=== PATIENT | female | born 1990 | race Two or more races ===

== ENCOUNTER 2024-01-27 01:03 | Inpatient (IN) | payer OTHER, MEDICAID ==
[~2024-01-27] VITALS: Ht 167.6 cm; Wt 60.6 kg
[2024-01-27 01:31] VITALS: PULSE 87; RESP 22; O2SAT 100
[2024-01-27 01:51] LABS: Eosinophils # (auto) 0.1 10 ^3/uL (0-0.8); Eosinophils % (auto) 1.1 % (0.0-7.0); Hemoglobin 11.7 g/dL (12.2-16.2); Monocytes # (auto) 0.4 10 ^3/uL (0-1.3); Nucleated Red Blood Cells % 0.1 %
[2024-01-27 01:52] LABS: Basophils # (auto) 0 10 ^3/uL (0-0.2); Basophils % (auto) 0.5 % (0.0-2.0); Hematocrit 38.3 % (36.0-46.0); Lymphocytes # (auto) 2.2 10 ^3/uL (0.4-5.4); Lymphocytes % (auto) 27.3 % (10.0-50.0); Mean Corpuscular Hemoglobin 23.5 pg (28.0-32.0); Mean Corpuscular Hgb Conc. 30.6 g/dL (32.0-36.0); Mean Corpuscular Volume 76.8 fL (80.0-100.0); Monocytes % (auto) 5.5 % (0.0-12.0); Neutrophils # (auto) 5.3 10 ^3/uL (1.6-8.6); Neutrophils % (auto) 65.6 % (37.0-80.0); Red Blood Cells 4.99 10^6/uL (4.0-5.20)
[2024-01-27] MEDS: ONDANSETRON HCL 4 MG/2 ML VIAL IV ONE (01:57)
[2024-01-27] MEDS: MORPHINE SULFATE INJ 2 MG/ml SYRG IV ONE (01:59)
[2024-01-27] MEDS: LORazepam 2MG/ML-1ML VIAL IV ONE (02:02)
[2024-01-27 02:04] LABS: Alanine Aminotransferase 32 U/L (7-40); Albumin 4.1 g/dL (3.2-4.8); Alkaline Phosphatase 92 U/L (46-116); Anion Gap 10 (5-15); Aspartate Aminotransferase 44 U/L (13-40); Calcium 9.2 mg/dL (8.7-10.4); Carbon Dioxide 22 mmol/L (20-30); Chloride 105 mmol/L (98-107); Glucose 137 mg/dL (74-106); Sodium 137 mmol/L (136-145)
[2024-01-27 02:05] LABS: Bilirubin, Total 0.6 mg/dL (0.2-1.0); Total Protein 6.9 g/dL (5.7-8.2)
[2024-01-27 02:09] LABS: Red Cell Distribution Width 20.8 % (11.8-14.3)
[2024-01-27 02:10] LABS: Blood Urea Nitrogen < 5 mg/dL (9-23)
[2024-01-27] MEDS: SODIUM CHLORIDE 0.9% 1,000 ML IV ONE (02:40)
[2024-01-27] MEDS: ETOMIDATE (2MG/ML) 20ML VIAL IV ONE ×2 (03:01→03:28)
[2024-01-27] MEDS ORDERED: ACETAMINOPHEN 325 MG TAB PO PRN (03:30)
[2024-01-27] MEDS ORDERED: ONDANSETRON HCL 4 MG/2 ML VIAL IV PRN (03:30)
[2024-01-27] MEDS ORDERED: MORPHINE SULFATE INJ 2 MG/ml SYRG IV PRN (03:30)
[2024-01-27] MEDS ORDERED: NITROGLYCERIN 0.4 MG SL TAB SL PRN (03:30)
[2024-01-27] MEDS ORDERED: DOCUSATE SOD 100 MG CAP PO PRN (03:30)
[2024-01-27] MEDS: SODIUM CHLORIDE 0.9% 1,000 ML IV SCH (03:31)
[2024-01-27] MEDS ORDERED: LORazepam 2MG/ML-1ML VIAL IV PRN (03:45)
[2024-01-27 05:21] LABS: Basophils # (auto) 0 10 ^3/uL (0-0.2); Basophils % (auto) 0.1 % (0.0-2.0); Eosinophils # (auto) 0 10 ^3/uL (0-0.8); Hematocrit 35.5 % (36.0-46.0); Hemoglobin 11.2 g/dL (12.2-16.2); Lymphocytes # (auto) 0.5 10 ^3/uL (0.4-5.4); Mean Corpuscular Hemoglobin 23.9 pg (28.0-32.0); Mean Corpuscular Hgb Conc. 31.5 g/dL (32.0-36.0); Neutrophils # (auto) 11.5 10 ^3/uL (1.6-8.6)
[2024-01-27 05:24] LABS: Lymphocytes % (auto) 4.2 % (10.0-50.0); Mean Corpuscular Volume 75.6 fL (80.0-100.0); Monocytes # (auto) 0.4 10 ^3/uL (0-1.3); Monocytes % (auto) 3.3 % (0.0-12.0); Neutrophils % (auto) 92.4 % (37.0-80.0); Red Blood Cells 4.69 10^6/uL (4.0-5.20); Red Cell Distribution Width 19.8 % (11.8-14.3); White Blood Cell 12.4 10^3/uL (4.4-10.8)
[2024-01-27 05:38] LABS: Alanine Aminotransferase 27 U/L (7-40); Albumin 4.1 g/dL (3.2-4.8); Alkaline Phosphatase 89 U/L (46-116); Anion Gap 9 (5-15); Aspartate Aminotransferase 38 U/L (13-40); Calcium 8.7 mg/dL (8.5-10.1); Carbon Dioxide 24 mmol/L (20-30); Chloride 107 mmol/L (98-107); Glucose 94 mg/dL (74-106); Potassium 3.2 mmol/L (3.5-5.1); Sodium 140 mmol/L (136-145)
[2024-01-27 05:39] LABS: Bilirubin, Total 0.8 mg/dL (0.2-1.0); Total Protein 6.3 g/dL (5.7-8.2)
[2024-01-27 05:42] LABS: BUN/Creatinine Ratio 8.3 (10.0-20.0); Blood Urea Nitrogen < 5 mg/dL (9-23)
[2024-01-27 07:20] VITALS: PULSE 87; RESP 19; O2SAT 97
[2024-01-27 07:41] LABS: Urine Bacteria FEW /hpf (None Seen); Urine Blood 3+ /uL (Negative); Urine Clarity CLOUDY (Clear); Urine Color Colorless (Yellow); Urine Mucus FEW (None Seen); Urine Protein, UAD TRACE (Negative); Urine Specific Gravity 1.014 (1.001-1.035); Urine Urobilinogen Normal (Negative); Urine WBC 13 /hpf (0 - 5); Urine pH 7.5 (5.0-8.0)
[2024-01-27 07:51] LABS: Amphetamine Screen, Urine Neg (NEGATIVE); Barbiturate Scree,Urine Neg (NEGATIVE); Benzodiazephine Screen, Urine Neg (NEGATIVE); Cannabinoid Screen, Urine Neg (NEGATIVE); Cocaine Screen, Urine Neg (NEGATIVE); Opiate Scree,Urine Neg (NEGATIVE); Phencyclidine Screen, Urine Neg (NEGATIVE)
[2024-01-27] MEDS: HYDROcodone-ACET 5/325MG TAB PO PRN (08:33)
[2024-01-27 22:56] VITALS: BP 139/94; PULSE 67; PULSE 89; RESP 17; RESP 18; TEMP 98.6; O2SAT 98
[2024-01-28] VITALS (9 sets, daily range): BP systolic 134–147; BP diastolic 94–111; PULSE 75–106; RESP 17–20; TEMP 97.7–98.6; O2SAT 94–99
[2024-01-28 05:19] LABS: Basophils # (auto) 0 10 ^3/uL (0-0.2); Mean Corpuscular Volume 75.6 fL (80.0-100.0); Monocytes # (auto) 0.4 10 ^3/uL (0-1.3); Neutrophils # (auto) 5.7 10 ^3/uL (1.6-8.6)
[2024-01-28 05:20] LABS: Basophils % (auto) 0.2 % (0.0-2.0); Eosinophils # (auto) 0.1 10 ^3/uL (0-0.8); Eosinophils % (auto) 1.8 % (0.0-7.0); Hematocrit 37.1 % (36.0-46.0); Hemoglobin 11.7 g/dL (12.2-16.2); Lymphocytes # (auto) 1.9 10 ^3/uL (0.4-5.4); Lymphocytes % (auto) 23.2 % (10.0-50.0); Mean Corpuscular Hemoglobin 23.7 pg (28.0-32.0); Mean Corpuscular Hgb Conc. 31.4 g/dL (32.0-36.0); Monocytes % (auto) 4.9 % (0.0-12.0); Neutrophils % (auto) 69.9 % (37.0-80.0); Red Blood Cells 4.91 10^6/uL (4.0-5.20); White Blood Cell 8.2 10^3/uL (4.4-10.8)
[2024-01-28 05:30] LABS: Red Cell Distribution Width 20.8 % (11.8-14.3)
[2024-01-28 05:36] LABS: Alanine Aminotransferase 18 U/L (7-40); Alkaline Phosphatase 80 U/L (46-116); Anion Gap 7 (5-15); Aspartate Aminotransferase 22 U/L (13-40); Calcium 8.9 mg/dL (8.7-10.4); Carbon Dioxide 26 mmol/L (20-30); Chloride 105 mmol/L (98-107); Glucose 95 mg/dL (74-106); Potassium 3.2 mmol/L (3.5-5.1); Sodium 138 mmol/L (136-145)
[2024-01-28 05:37] LABS: Bilirubin, Total 0.8 mg/dL (0.2-1.0); Total Protein 6.6 g/dL (5.7-8.2)
[2024-01-28 05:50] LABS: BUN/Creatinine Ratio 8.6 (10.0-20.0); Blood Urea Nitrogen < 5 mg/dL (9-23)
[2024-01-28] MEDS ORDERED: LORazepam 2MG/ML-1ML VIAL IV PRN (22:30)
[2024-01-28] MEDS ORDERED: hydrALAZINE HCL 20 MG/ML VL IV ONE (22:45)
[2024-01-29 01:00] VITALS: BP 133/82; PULSE 73; RESP 18; TEMP 97.9; O2SAT 96
[2024-01-29 05:00] VITALS: BP 142/110; PULSE 94; RESP 20; TEMP 98.5; O2SAT 98
[2024-01-29 06:19] LABS: Basophils # (auto) 0 10 ^3/uL (0-0.2); Eosinophils # (auto) 0.2 10 ^3/uL (0-0.8); Lymphocytes # (auto) 1.3 10 ^3/uL (0.4-5.4); Monocytes # (auto) 0.4 10 ^3/uL (0-1.3); Neutrophils # (auto) 4.4 10 ^3/uL (1.6-8.6); White Blood Cell 6.4 10^3/uL (4.4-10.8)
[2024-01-29 06:22] LABS: Basophils % (auto) 0.4 % (0.0-2.0); Eosinophils % (auto) 2.6 % (0.0-7.0); Hematocrit 36.1 % (36.0-46.0); Hemoglobin 11.3 g/dL (12.2-16.2); Lymphocytes % (auto) 20.9 % (10.0-50.0); Mean Corpuscular Hemoglobin 24.3 pg (28.0-32.0); Mean Corpuscular Hgb Conc. 31.4 g/dL (32.0-36.0); Mean Corpuscular Volume 77.3 fL (80.0-100.0); Monocytes % (auto) 6.6 % (0.0-12.0); Neutrophils % (auto) 69.5 % (37.0-80.0); Nucleated Red Blood Cells % 0.1 %; Red Blood Cells 4.67 10^6/uL (4.0-5.20)
[2024-01-29 06:30] LABS: Anion Gap 4 (5-15); Calcium 8.7 mg/dL (8.5-10.1); Carbon Dioxide 29 mmol/L (20-30); Chloride 106 mmol/L (98-107); Potassium 3.3 mmol/L (3.5-5.1); Sodium 139 mmol/L (136-145)
[2024-01-29 06:36] LABS: Glucose 99 mg/dL (74-106)
[2024-01-29 06:40] LABS: Red Cell Distribution Width 20.7 % (11.8-14.3)
[2024-01-29 06:44] LABS: BUN/Creatinine Ratio 8.9 (10.0-20.0); Blood Urea Nitrogen < 5 mg/dL (9-23)
[2024-01-29 08:00] VITALS: PULSE 71; RESP 19
[2024-01-29 09:00] VITALS: BP 128/90; PULSE 90; RESP 17; TEMP 98; O2SAT 98
[2024-01-29] MEDS ORDERED: HYDR-4902 PO (09:41)
[2024-01-29] MEDS: POTASSIUM CHL 10 Meq TABLET PO ONE (11:55)
[2024-01-29] MEDS: POTASSIUM CHL 20 Meq TABLET PO ONE (11:55)
[2024-01-29 12:06] VITALS: BP 126/89; PULSE 90; RESP 18; TEMP 36.7; O2SAT 98
[2024-01-29 13:00] VITALS: BP 147/96; PULSE 95; RESP 20; TEMP 98.2; O2SAT 99
== END 2024-01-29 15:30 | disposition home or self-care (01) | DRG 563 ==
LOC: ER 01:03 → EDBD 01:03 → TELE 03:25 → ER 03:25 → TELE-WESTW 22:52
PROVIDERS: ADMIT Nurse Practitioner Family; ATTEND Internal Medicine Pulmonary Disease
DX: S43.004A Unspecified dislocation of right shoulder joint, initial encounter (principal); F10.239 Alcohol dependence with withdrawal, unspecified; G40.909 Epilepsy, unspecified, not intractable, without status epilepticus; R73.9 Hyperglycemia, unspecified; F17.200 Nicotine dependence, unspecified, uncomplicated; F41.9 Anxiety disorder, unspecified; W06.XXXA Fall from bed, initial encounter; I10 Essential (primary) hypertension; Z79.899 Other long term (current) drug therapy; Z56.0 Unemployment, unspecified; Z81.8 Family history of other mental and behavioral disorders; Z82.49 Family history of ischemic heart disease and other diseases of the circulatory system; Z83.3 Family history of diabetes mellitus; Z91.128 Patient's intentional underdosing of medication regimen for other reason; Y93.89 Activity, other specified; Y92.89 Other specified places as the place of occurrence of the external cause; Y99.8 Other external cause status; F53.0 Postpartum depression
CPT/HCPCS: 36415; 70450; 70551; 71045; 73020; 73030; 80048; 80053; 80307; 80320; 81001; 85025; 96361; 96374; 96375; G0378; J2405

== ENCOUNTER 2024-10-25 01:13 | Emergency (ER) | payer OTHER, MEDICAID ==
[~2024-10-25] VITALS: Ht 167.6 cm; Wt 70.3 kg
[~2024-10-25 01:13] MED LIST: HYDR-4902 PO
[2024-10-25] MEDS: LORazepam 2MG/ML-1ML VIAL IV ONE (01:45)
--- NOTE | 2024-10-25 01:45 | ED.PDOC ---
HPI (NEURO) HPI Comments 34 year old female brought in by EMS presents to the ED with a chief complaint of seizure onset today. Per EMS, patient was drinking ETOH when she experienced a single seizure episode. Patient states she had a similar episode 1 year ago, after drinking ETOH as well. Patient denies any chest pain, shortness of breath, dizziness, headache, nausea, vomiting, diarrhea. No other symptoms or modifying factors present at this time. 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 Hx Family History Family History: Unknown Social History Smoker: Non-Smoker Alcohol: Heavy Drugs: Denies Drug Use Lives In: Home Constitutional: denies: chills, diaphoresis, fatigue, fever, malaise, sweats, weakness, others EENTM: denies: blurred vision, double vision, ear bleeding, ear discharge, ear drainage, ear pain, ear ringing, eye pain, eye redness, hearing loss, mouth pain, mouth swelling, nasal discharge, nose bleeding, nose congestion, nose pain, photophobia, tearing, throat pain, throat swelling, voice changes, others Respiratory: denies: cough, hemoptysis, orthopnea, SOB at rest, shortness of breath, SOB with excertion, stridor, wheezing, others Cardiovascular: denies: chest pain, dizzy spells, diaphoresis, Dyspnea on exertion, edema, irregular heart beat, left arm pain, lightheadedness, palpitations, PND, syncope, others Gastrointestinal: denies: abdomen distended, abdominal pain, blood streaked bowels, constipated, diarrhea, dysphagia, difficulty swallowing, hematemesis, melena, nausea, poor appetite, poor fluid intake, rectal bleeding, rectal pain, vomiting, others Genitourinary: denies: abnormal vagina bleeding, burning, dyspareunia, dysuria, flank pain, frequency, hematuria, incontinence, pain, , vagina discharge, urgency, others Neurological: reports: seizure; denies: dizziness, fainting, headache, left sided numbness, left sided weakness, numbness, paresthesia, pre-existing deficit, right sided numbness, right sided weakness, speech problems, tingling, tremors, weakness, others Musculoskeletal: denies: back pain, gout, joint pain, joint swelling, muscle pain, muscle stiffness, neck pain, others Integumetry: denies: bruises, change in color, change in hair/nails, dryness, laceration, lesions, lumps, rash, wounds, others Allergic/Immunocompromised: denies: Difficulty Healing, Frequent Infections, Hives, Itching, others Hematologic/Lymphatic: denies: anemia, blood clots, easy bleeding, easy bruising, swollen glands, others Endocrine: denies: excessive hunger, excessive sweating, excessive thirst, excessive urination, flushing, intolerance to cold, intolerance to heat, unexplained weight gain, unexplained weight loss, others Psychiatric: denies: anxiety, bipolar disorder, depression, hopeless, panic disorder, schizophrenia, sleepless, suicidal, others All Other Systems: Reviewed and Negative Physical Exam General Appearance: Mild Distress, Normal HEENT: Normal ENT Inspection, Pharynx Normal, TMs Normal Neck: Full Range of Motion, Non-Tender, Normal, Normal Inspection Respiratory: Chest Non-Tender, Lungs Clear, No Accessory Muscle Use, No Respiratory Distress, Normal Breath Sounds Cardiovascular: No Edema, No JVD, No Murmur, No Gallop, Normal Peripheral Pulses, Regular Rate/Rhythm Breast Exam: Deferred Gastrointestinal: No Organomegaly, Non Tender, No Pulsatile Mass, Normal Bowel Sounds, Soft Genitalia: Deferred Pelvic: Deferred Rectal: Deferred Extremities: No calf tenderness, Normal capillary refill, Normal inspection, Normal range of motion, Non-tender, No pedal edema Musculoskeletal : Apperance: Normal Neurologic: Alert, 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 Was a procedure done?: No Differential Diagnosis (SZ) Seizure: Psychogenic Seizure, Alcohol Withdrawl, Hyponatremia, Syncope, Epilepsy-Break Through, Epilepsy-Status, Other CVA: Electrolyte Imbalance X-Ray, Labs, Meds, VS Vital Signs Date Time Temp Pulse Resp B/P (MAP) Pulse Ox O2 Delivery O2 Flow Rate FiO2 10/25/24 04:05 99.3 120 25 147/87 (107) 100 99.3 10/25/24 01:32 100.3 114 20 121/87 (98) 98 Lab Test 10/25/24 02:30 10/25/24 01:56 Range/Units White Blood Count 8.5 4.4-10.8 10^3/uL Red Blood Count 4.66 4.0-5.20 10^6/uL Hemoglobin 13.9 12.2-16.2 g/dL Hematocrit 42.6 36.0-46.0 % Mean Corpuscular Volume 91.5 80.0-100.0 fL Mean Corpuscular Hemoglobin 29.9 28.0-32.0 pg Mean Corpuscular Hemoglobin Concent 32.7 32.0-36.0 g/dL Red Cell Distribution Width 17.5 H 11.8-14.3 % Platelet Count 100 L 140-450 10^3/uL Mean Platelet Volume 8.9 6.9-10.8 fL Neutrophils (%) (Auto) 91.8 H 37.0-80.0 % Lymphocytes (%) (Auto) 4.4 L 10.0-50.0 % Monocytes (%) (Auto) 3.1 0.0-12.0 % Eosinophils (%) (Auto) 0.4 0.0-7.0 % Basophils (%) (Auto) 0.3 0.0-2.0 % Neutrophils # (Auto) 7.8 1.6-8.6 10 ^3/uL Lymphocytes # (Auto) 0.4 0.4-5.4 10 ^3/uL Monocytes # (Auto) 0.3 0-1.3 10 ^3/uL Eosinophils # (Auto) 0 0-0.8 10 ^3/uL Basophils # (Auto) 0 0-0.2 10 ^3/uL Nucleated Red Blood Cells 0.1 % Platelet Estimate Decrea Large Platelets Few Sodium Level 136 136-145 mmol/L Potassium Level 3.8 3.5-5.1 mmol/L Chloride Level 102 98-107 mmol/L Carbon Dioxide Level 24 20-31 mmol/L Anion Gap 10 5-15 Blood Urea Nitrogen < 5 L 9-23 mg/dL Creatinine 0.81 0.550-1.02 mg/dL Glomerular Filtration Rate Calc 97 >90 mL/min BUN/Creatinine Ratio 6.2 L 10.0-20.0 Serum Glucose 122 H 74-106 mg/dL Calcium Level 9.2 8.7-10.4 mg/dL Magnesium Level 1.5 L 1.6-2.6 mg/dL Total Bilirubin 1.0 0.2-1.0 mg/dL Aspartate Amino Transferase (AST) 41 H 13-40 U/L Alanine Aminotransferase (ALT) 15 7-40 U/L Alkaline Phosphatase 88 46-116 U/L Total Protein 7.1 5.7-8.2 g/dL Albumin 4.3 3.2-4.8 g/dL Plasma/Serum Blood Alcohol 3.2 <10 mg/dL Current Medications Medications (Trade) Dose Ordered Sig/Caleb Route Start Time Stop Time Status Last Admin Lorazepam (Ativan Inj) 2 mg ONCE ONCE IV 10/25/24 01:45 10/25/24 01:46 DC 10/25/24 01:45 Sodium Chloride 500 ml @ 500 mls/hr Q1H ONCE IVB 10/25/24 01:45 10/25/24 02:44 DC 10/25/24 04:08 Time of 1ST Reevaluation: 02:08 Reevaluation 1ST: Unchanged Time of 2ND Reevaluation: 04:57 Reevaluation 2ND: Improved Patient Education/Counseling: Diagnosis, Treatment, Prognosis Family Education/Counseling: No Family Present Additional Information I reviewed the following notes from patient's past medical encounters: The following tests were ordered, and results were reviewed by me: CBC, CMP, MAGNESIUM, BLOOD ALCOHOL Additional Information was gathered from interviewing the following independent historians: EMS I discussed treatment and results with medical personnel and: patient Departure 1 Departure Time of Disposition: 04:58 Impression: Primary Impression: Seizure Additional Impression: Alcohol withdrawal seizure Disposition: 01 HOME / SELF CARE / HOMELESS Condition: Stable e-Prescriptions Magnesium Oxide (MAGNESIUM OXIDE) 400 Mg Tab 1 TAB PO BID for 30 Days, #60 TAB 5 Refills Prov: CHLOE FRY MD 10/25/24 Multiple Vitamin (Multivitamins) Tab 1 TAB PO DAILY for 90 Days, #90 TAB 3 Refills Prov: CHLOE FRY MD 10/25/24 Chlordiazepoxide Hcl (Librium) 25 Mg Cp 25 MG GT Q4HP PRN for 10 Days, #40 CAP Prov: CHLOE FRY MD 10/25/24 Discharged With: Self Critical Care Note Critical Care Time?: No Stability Stability form required: No I personally scribed for CHLOE FRY MD ([email or web address]) on 10/25/24 at 01:45. Electronically submitted by Rebeca Stone ([email or web address]). I personally scribed for CHLOE FRY MD ([email or web address]) on 10/25/24 at 01:46. Electronically submitted by Rebeca Stone ([email or web address]). CHLOE FRY MD Oct 25, 2024 01:45
[2024-10-25 02:23] LABS: Alanine Aminotransferase 15 U/L (7-40); Albumin 4.3 g/dL (3.2-4.8); Alkaline Phosphatase 88 U/L (46-116); Anion Gap 10 (5-15); Blood Alcohol 3.2 mg/dL (<10); Calcium 9.2 mg/dL (8.7-10.4); Carbon Dioxide 24 mmol/L (20-31); Chloride 102 mmol/L (98-107); Potassium 3.8 mmol/L (3.5-5.1); Sodium 136 mmol/L (136-145); Total Protein 7.1 g/dL (5.7-8.2)
[2024-10-25 02:38] LABS: Aspartate Aminotransferase 41 U/L (13-40); BUN/Creatinine Ratio 6.2 (10.0-20.0); Blood Urea Nitrogen < 5 mg/dL (9-23); Glucose 122 mg/dL (74-106); Magnesium 1.5 mg/dL (1.6-2.6)
[2024-10-25 02:41] LABS: Basophils # (auto) 0 10 ^3/uL (0-0.2); Basophils % (auto) 0.3 % (0.0-2.0); Eosinophils # (auto) 0 10 ^3/uL (0-0.8); Eosinophils % (auto) 0.4 % (0.0-7.0); Hematocrit 42.6 % (36.0-46.0); Hemoglobin 13.9 g/dL (12.2-16.2); Lymphocytes # (auto) 0.4 10 ^3/uL (0.4-5.4); Lymphocytes % (auto) 4.4 % (10.0-50.0); Mean Corpuscular Hemoglobin 29.9 pg (28.0-32.0); Mean Corpuscular Hgb Conc. 32.7 g/dL (32.0-36.0); Mean Corpuscular Volume 91.5 fL (80.0-100.0); Monocytes # (auto) 0.3 10 ^3/uL (0-1.3); Monocytes % (auto) 3.1 % (0.0-12.0); Neutrophils # (auto) 7.8 10 ^3/uL (1.6-8.6); Neutrophils % (auto) 91.8 % (37.0-80.0); Nucleated Red Blood Cells % 0.1 %; Platelet Count (auto) 100 10^3/uL (140-450); Red Blood Cells 4.66 10^6/uL (4.0-5.20); Red Cell Distribution Width 17.5 % (11.8-14.3); White Blood Cell 8.5 10^3/uL (4.4-10.8)
[2024-10-25] MEDS: MAGNESIUM SULFATE 1GM/100ML 100 ML IV SCH (02:45)
[2024-10-25 02:53] LABS: Large Platelets FEW; Platelet Estimate Decrea
[2024-10-25] MEDS ORDERED: MAGN400T40 PO (02:56)
[2024-10-25] MEDS ORDERED: MULT-1018 PO (02:56)
[2024-10-25] MEDS ORDERED: CHL25C GT (02:56)
[2024-10-25] MEDS: SODIUM CHLORIDE 0.9% 500 ML IVB ONE (04:08)
[2024-10-25 06:01] VITALS: BP 130/89; TEMP 100.9
[2024-10-25 06:34] VITALS: PULSE 124; RESP 12; O2SAT 99
== END 2024-10-25 06:36 | disposition home or self-care (01) ==
LOC: EDBD 01:13 → ER 01:13
DX: G40.909 Epilepsy, unspecified, not intractable, without status epilepticus (principal); F10.939 Alcohol use, unspecified with withdrawal, unspecified; I10 Essential (primary) hypertension
CPT/HCPCS: 36415; 80053; 80320; 83735; 85025; 96361; 96374; 99283; J2060; J7040

== ENCOUNTER 2024-12-23 11:42 | Emergency (ER) | payer OTHER, MEDICAID ==
[~2024-12-23] VITALS: Ht 170.2 cm; Wt 61.0 kg
[~2024-12-23 11:42] MED LIST changes: +CHL25C GT; +MAGN400T40 PO; +MULT-1018 PO
[2024-12-23] MEDS: MORPHINE SULFATE 4 MG/ML SYR/VIAL IV ONE (11:45)
--- NOTE | 2024-12-23 11:52 | ED.PDOC ---
History of Present Illness HPI Comments 34-year-old female who comes in with chief complaint of tonic-clonic seizure lasting approximately 2 minutes. The patient was admits to alcohol use yesterday and then today had a seizure lasting approximately 2 minutes. There was no head trauma but the patient landed on her right shoulder. She states that she has had a dislocation in the past and states that the pain is an 8/10. There seems to be some obvious deformity. She states that her last seizure was last year after drinking alcohol as well. Chief Complaint: Seizure Time Seen by MD: 11:45 Reviewed Notes: Nurses Notes, Sub Master Notes, Medications, Allergies (NKDA ) Allergies: Coded Allergies: NO KNOWN ALLERGIES (Unverified , 01/27/24) Home Meds Active Scripts Magnesium Oxide (MAGNESIUM OXIDE) 400 Mg Tab, 1 TAB PO BID for 30 Days, #60 TAB 5 Refills Prov:CHLOE FRY MD 10/25/24 Multiple Vitamin (Multivitamins) Tab, 1 TAB PO DAILY for 90 Days, #90 TAB 3 Refills Prov:CHLOE FRY MD 10/25/24 Chlordiazepoxide Hcl (Librium) 25 Mg Cp, 25 MG GT Q4HP PRN for 10 Days, #40 CAP Prov:CHLOE FRY MD 10/25/24 Hydrocodone-Acetaminophen (Hydrocodone Bitartrate/AC 5-325 mg) 1 Tab Tab, 1 TAB PO Q6HPRN PRN for 5 Days, #20 TAB Prov:DARRON MONGE MD 01/29/24 Information Source: Patient, Emergency Med Personnel Mode of Arrival: EMS Severity: Moderate Timing: Minutes Duration: Intermittent 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, 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 Location: Right shoulder pain and possible deformity Past Medical History PAST MEDICAL HISTORY: Depression, Seizures Surgical History: Denies all surgeries DESK MONITOR History: Denies all DESK MONITOR Hx Family History Family History: Unknown Social History Smoker: Non-Smoker Alcohol: Heavy Drugs: Denies Drug Use Lives In: Home Constitutional: denies: chills, diaphoresis, fatigue, fever, malaise, sweats, weakness, others EENTM: denies: blurred vision, double vision, ear bleeding, ear discharge, ear drainage, ear pain, ear ringing, eye pain, eye redness, hearing loss, mouth pain, mouth swelling, nasal discharge, nose bleeding, nose congestion, nose pain, photophobia, tearing, throat pain, throat swelling, voice changes, others Respiratory: denies: cough, hemoptysis, orthopnea, SOB at rest, shortness of breath, SOB with excertion, stridor, wheezing, others Cardiovascular: denies: chest pain, dizzy spells, diaphoresis, Dyspnea on exertion, edema, irregular heart beat, left arm pain, lightheadedness, palpitations, PND, syncope, others Gastrointestinal: denies: abdomen distended, abdominal pain, blood streaked bowels, constipated, diarrhea, dysphagia, difficulty swallowing, hematemesis, melena, nausea, poor appetite, poor fluid intake, rectal bleeding, rectal pain, vomiting, others Genitourinary: denies: abnormal vagina bleeding, burning, dyspareunia, dysuria, flank pain, frequency, hematuria, incontinence, pain, , vagina discharge, urgency, others Neurological: reports: seizure; denies: dizziness, fainting, headache, left sided numbness, left sided weakness, numbness, paresthesia, pre-existing deficit, right sided numbness, right sided weakness, speech problems, tingling, tremors, weakness, others Musculoskeletal: reports: others (Right shoulder pain); denies: back pain, gout, joint pain, joint swelling, muscle pain, muscle stiffness, neck pain Integumetry: denies: bruises, change in color, change in hair/nails, dryness, laceration, lesions, lumps, rash, wounds, others Allergic/Immunocompromised: denies: Difficulty Healing, Frequent Infections, Hives, Itching, others Hematologic/Lymphatic: denies: anemia, blood clots, easy bleeding, easy bruising, swollen glands, others Endocrine: denies: excessive hunger, excessive sweating, excessive thirst, excessive urination, flushing, intolerance to cold, intolerance to heat, unexplained weight gain, unexplained weight loss, others Psychiatric: denies: anxiety, bipolar disorder, depression, hopeless, panic disorder, schizophrenia, sleepless, suicidal, others Physical Exam General Appearance: Moderate Distress HEENT: Normal ENT Inspection, Pharynx Normal, TMs Normal Neck: Full Range of Motion, Non-Tender, Normal, Normal Inspection Respiratory: Chest Non-Tender, Lungs Clear, No Accessory Muscle Use, No Respiratory Distress, Normal Breath Sounds Cardiovascular: No Edema, No JVD, No Murmur, No Gallop, Normal Peripheral Pulses, Regular Rate/Rhythm Breast Exam: Deferred Gastrointestinal: No Organomegaly, Non Tender, No Pulsatile Mass, Normal Bowel Sounds, Soft Genitalia: Deferred Pelvic: Deferred Rectal: Deferred Extremities: No calf tenderness, Normal capillary refill, No pedal edema, Other (Right shoulder pain and deformity) Musculoskeletal : Apperance: Normal 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 Was a procedure done?: Yes Sedation Sedation?: Yes Informed consent obtained: Yes Sedation start time: 12:38 Sedation end time: 12:55 Sedation total time: 17 minutes Reduction Indication: Dislocation (Right shoulder dislocation) Sedation: Consents obtained, Sedation as ordered Intra-articular anesthetic maral: No Post-reduction x-ray show: Reduction, Good Alignment Informed consent obtained: Yes Risks/benefits/alt described: Yes Differential Dx Considerations may include: Fracture, dislocation, contusion X-Ray, Labs, Meds, VS Vital Signs Date Time Temp Pulse Resp B/P (MAP) Pulse Ox O2 Delivery O2 Flow Rate FiO2 12/23/24 12:38 102 43 100 3.0 32 115 24 99 108 98 12/23/24 11:46 98.3 125 18 113/79 (90) 100 Lab Test 12/23/24 12:14 Range/Units White Blood Count 7.6 4.4-10.8 10^3/uL Red Blood Count 5.12 4.0-5.20 10^6/uL Hemoglobin 15.6 12.2-16.2 g/dL Hematocrit 47.8 H 36.0-46.0 % Mean Corpuscular Volume 93.4 80.0-100.0 fL Mean Corpuscular Hemoglobin 30.5 28.0-32.0 pg Mean Corpuscular Hemoglobin Concent 32.7 32.0-36.0 g/dL Red Cell Distribution Width 17.1 H 11.8-14.3 % Platelet Count 147 140-450 10^3/uL Mean Platelet Volume 9.0 6.9-10.8 fL Neutrophils (%) (Auto) 84.8 H 37.0-80.0 % Lymphocytes (%) (Auto) 11.4 10.0-50.0 % Monocytes (%) (Auto) 2.9 0.0-12.0 % Eosinophils (%) (Auto) 0.4 0.0-7.0 % Basophils (%) (Auto) 0.5 0.0-2.0 % Neutrophils # (Auto) 6.4 1.6-8.6 10 ^3/uL Lymphocytes # (Auto) 0.9 0.4-5.4 10 ^3/uL Monocytes # (Auto) 0.2 0-1.3 10 ^3/uL Eosinophils # (Auto) 0 0-0.8 10 ^3/uL Basophils # (Auto) 0 0-0.2 10 ^3/uL Nucleated Red Blood Cells 0.1 % Sodium Level 139 136-145 mmol/L Potassium Level 3.4 L 3.5-5.1 mmol/L Chloride Level 105 98-107 mmol/L Carbon Dioxide Level 18 L 20-31 mmol/L Anion Gap 16 H 5-15 Blood Urea Nitrogen < 5 L 9-23 mg/dL Creatinine 0.79 0.550-1.02 mg/dL Glomerular Filtration Rate Calc 100 >90 mL/min BUN/Creatinine Ratio 6.3 L 10.0-20.0 Serum Glucose 117 H 74-106 mg/dL Calcium Level 9.5 8.7-10.4 mg/dL Plasma/Serum Blood Alcohol < 3.0 <10 mg/dL Current Medications Medications (Trade) Dose Ordered Sig/Caleb Route Start Time Stop Time Status Last Admin Ondansetron HCl (Zofran) 4 mg ONCE ONCE IV 12/23/24 11:45 12/23/24 11:48 DC 12/23/24 12:34 Etomidate 20 mg ONCE ONCE IV 12/23/24 12:45 12/23/24 12:46 DC 12/23/24 12:44 IV Hep-Lock is being established in the patient was given morphine 4 mg IV push for pain The patient was given Zofran 4 mg IV for nausea The patient tolerated the procedure well. Sedation was given etomidate 20 mg IV push for the procedure The CBC and chemistry panel are within normal limits At this time, the patient is discharged The patient was in a shoulder immobilizer. The patient tolerated the procedure and the patient was to abstain from alcohol use. Images Reviewed?: Images reviewed and evaluated by me Time of 1ST Reevaluation: 11:56 Reevaluation 1ST: Unchanged Patient Education/Counseling: Diagnosis, Treatment, Prognosis, Need For Follow Up Family Education/Counseling: No Family Present Departure 1 Departure Time of Disposition: 14:19 Impression: Primary Impression: Dislocation of right shoulder joint Qualified Codes: S43.004A - Unspecified dislocation of right shoulder joint, initial encounter Additional Impression: Seizure disorder Disposition: 01 HOME / SELF CARE / HOMELESS Condition: Fair Discharged With: Self Critical Care Note Critical Care Time?: No Stability Stability form required: No Heart Score Heart Score: Heart Score Response (Comments) Value History N/A 0 EKG N/A 0 Age N/A 0 Risk Factors N/A 0 Troponin N/A 0 Total 0 GEOVANY BEE MD Dec 23, 2024 11:51
[2024-12-23 12:31] VITALS: TEMP 98
[2024-12-23 12:32] LABS: Basophils # (auto) 0 10 ^3/uL (0-0.2); Basophils % (auto) 0.5 % (0.0-2.0); Eosinophils # (auto) 0 10 ^3/uL (0-0.8); Eosinophils % (auto) 0.4 % (0.0-7.0); Hematocrit 47.8 % (36.0-46.0); Hemoglobin 15.6 g/dL (12.2-16.2); Lymphocytes # (auto) 0.9 10 ^3/uL (0.4-5.4); Lymphocytes % (auto) 11.4 % (10.0-50.0); Mean Corpuscular Hemoglobin 30.5 pg (28.0-32.0); Mean Corpuscular Hgb Conc. 32.7 g/dL (32.0-36.0); Mean Corpuscular Volume 93.4 fL (80.0-100.0); Monocytes # (auto) 0.2 10 ^3/uL (0-1.3); Monocytes % (auto) 2.9 % (0.0-12.0); Neutrophils # (auto) 6.4 10 ^3/uL (1.6-8.6); Neutrophils % (auto) 84.8 % (37.0-80.0); Nucleated Red Blood Cells % 0.1 %; Platelet Count (auto) 147 10^3/uL (140-450); Red Blood Cells 5.12 10^6/uL (4.0-5.20); Red Cell Distribution Width 17.1 % (11.8-14.3); White Blood Cell 7.6 10^3/uL (4.4-10.8)
[2024-12-23] MEDS: ONDANSETRON HCL 4 MG/2 ML VIAL IV ONE (12:34)
[2024-12-23 12:35] VITALS: PULSE 107; RESP 30; O2SAT 99
[2024-12-23 12:43] LABS: Anion Gap 16 (5-15); Chloride 105 mmol/L (98-107); Sodium 139 mmol/L (136-145)
[2024-12-23 12:44] LABS: Calcium 9.5 mg/dL (8.7-10.4)
[2024-12-23] MEDS: ETOMIDATE (2MG/ML) 20ML VIAL IV ONE (12:44)
--- NOTE | 2024-12-23 12:46 | DVH ---
EXAM: XY R SHOULDER 2+ VIEW XRAY CLINICAL INDICATION: trauma TECHNIQUE: XY R SHOULDER 2+ VIEW XRAY Comparison: XY R SHOULDER 1V XRAY on DOS: 01/27/24, XY R SHOULDER 2+ VIEW XRAY on DOS: 01/27/24 FINDINGS/IMPRESSION: There is anterior-inferior dislocation of the humeral head with respect to the glenoid fossa. Possibl e Hill-Sachs defect noted involving the posterolateral humeral head.
[2024-12-23 12:49] LABS: Carbon Dioxide 18 mmol/L (20-31); Potassium 3.4 mmol/L (3.5-5.1)
[2024-12-23 12:50] LABS: BUN/Creatinine Ratio 6.3 (10.0-20.0); Blood Alcohol < 3.0 mg/dL (<10); Blood Urea Nitrogen < 5 mg/dL (9-23); Glucose 117 mg/dL (74-106)
--- NOTE | 2024-12-23 13:56 | DVH ---
EXAM: XY R SHOULDER 2+ VIEW XRAY CLINICAL INDICATION: post reduction TECHNIQUE: right shoulder one view Without Contrast BRUCE JOHNSTON, [id number] Comparison: XY R SHOULDER 2+ VIEW XRAY on DOS: 12/23/24, XY R SHOULDER 1V XRAY on DOS: 01/27/24, XY R SH OULDER 2+ VIEW XRAY on DOS: 01/27/24, XY R SHOULDER 1V XRAY on DOS: 01/27/24 Findings/Impression: Post reduction images demonstrate bones in anatomic positioning. Cortical defect in the lateral humer al head question Hill-Sachs deformity. Impression: 1. Post reduction images demonstrate bones in anatomic alignment 2. Hill-Sachs deformity of the humeral head.
[2024-12-23 14:00] VITALS: BP 113/83; PULSE 90; RESP 12; O2SAT 97
== END 2024-12-23 15:25 | disposition home or self-care (01) ==
LOC: ER 11:42 → EDBD 11:42 → ER 15:25
DX: S43.004A Unspecified dislocation of right shoulder joint, initial encounter (principal); G40.909 Epilepsy, unspecified, not intractable, without status epilepticus; F32.9 Major depressive disorder, single episode, unspecified; Z79.899 Other long term (current) drug therapy; X58.XXXA Exposure to other specified factors, initial encounter; Y93.89 Activity, other specified; Y92.89 Other specified places as the place of occurrence of the external cause; Y99.8 Other external cause status
CPT/HCPCS: 23650; 36415; 73030; 80048; 80320; 82947; 85025; 96374; 99152; 99285; J2405

== ENCOUNTER 2025-05-07 14:04 | Emergency (ER) | payer OTHER, MEDICAID ==
[~2025-05-07] VITALS: Ht 167.6 cm; Wt 64.4 kg
--- NOTE | 2025-05-07 14:33 | ED.PDOC ---
Musculoskeletal HPI Comments A 34 YEAR OLD FEMALE PRESENTS TO THE ED WITH COMPLAINT OF RIGHT SHOULDER DISLOCATION. PATIENT STATES SHE HAS A HISTORY OF SIX RIGHT SHOULDER DISLOCATIONS IN THE PAST AND THINKS SHE DISLOCATED HER RIGHT SHOULDER AGAIN TODAY WHEN SHE WAS PUTTING HER PURSE ON TODAY. PATIENT DENIES FEVER, CHILLS, SHORTNESS OF BREATH, CHEST PAIN, ABDOMINAL PAIN, NAUSEA, VOMITING, HEADACHE, OR OTHER COMPLAINTS. NO OTHER SYMPTOMS OR MODIFYING FACTORS AT THIS TIME. PATIENT IS ALERT, ORIENTED X 4, AND HAS STEADY GAIT. Chief Complaint: Upper Extremity Time Seen by MD: 14:07 Primary Care Provider: NONE Reviewed Notes: Nurses Notes, Medications, Allergies Allergies: Coded Allergies: NO KNOWN ALLERGIES (Unverified , 01/27/24) Home Meds Active Scripts Ibuprofen (Ibuprofen) 800 Mg Tab, 1 TAB PO TID, #30 TAB Prov:SERJIO HOGUE 05/07/25 Magnesium Oxide (MAGNESIUM OXIDE) 400 Mg Tab, 1 TAB PO BID for 30 Days, #60 TAB 5 Refills Prov:CHLOE FRY MD 10/25/24 Multiple Vitamin (Multivitamins) Tab, 1 TAB PO DAILY for 90 Days, #90 TAB 3 Refills Prov:CHLOE FRY MD 10/25/24 Chlordiazepoxide Hcl (Librium) 25 Mg Cp, 25 MG GT Q4HP PRN for 10 Days, #40 CAP Prov:CHLOE FRY MD 10/25/24 Hydrocodone-Acetaminophen (Hydrocodone Bitartrate/AC 5-325 mg) 1 Tab Tab, 1 TAB PO Q6HPRN PRN for 5 Days, #20 TAB Prov:DARRON MONGE MD 01/29/24 Information Source: Patient Mode of Arrival: Ambulatory Location: Right Extremity Location: Shoulder Timing: Hours Prehospital treatment: None Severity: Moderate Able to Move Extremity: Yes Bear Weight: Fully Pain: Moderate Mechanism: Using Circumstances: Spontaneous Onset of Symptoms: After Exercise Symptoms: Pain DVT Risk Factors: NONE Last Tetanus: Unknown Associated signs and symptoms: Shoulder pain Past Medical History PAST MEDICAL HISTORY: Depression, Seizures Past Medical History (Other): RIGHT SHOULDER DISLOCATIONS Surgical History: Denies all surgeries DIRECTOR OF DISTRIBUTION History: Denies all DIRECTOR OF DISTRIBUTION Hx Family History Family History: Reviewed,noncontributory to illness Social History Smoker: Non-Smoker Alcohol: Heavy Drugs: Denies Drug Use Lives In: Home Constitutional: denies: chills, diaphoresis, fatigue, fever, malaise, sweats, weakness, others EENTM: denies: blurred vision, double vision, ear bleeding, ear discharge, ear drainage, ear pain, ear ringing, eye pain, eye redness, hearing loss, mouth pain, mouth swelling, nasal discharge, nose bleeding, nose congestion, nose pain , photophobia, tearing, throat pain, throat swelling, voice changes, others Respiratory: denies: cough, hemoptysis, orthopnea, SOB at rest, shortness of breath, SOB with excertion, stridor, wheezing, others Cardiovascular: denies: chest pain, dizzy spells, diaphoresis, Dyspnea on exertion, edema, irregular heart beat, left arm pain, lightheadedness, palpitations, PND, syncope, others Gastrointestinal: denies: abdomen distended, abdominal pain, blood streaked bowels, constipated, diarrhea, dysphagia, difficulty swallowing, hematemesis, melena, nausea, poor appetite, poor fluid intake, rectal bleeding, rectal pain, vomiting, others Genitourinary: denies: abnormal vagina bleeding, burning, dyspareunia, dysuria, flank pain, frequency, hematuria, incontinence, pain, , vagina discharge, urgency, others Neurological: denies: dizziness, fainting, headache, left sided numbness, left sided weakness, numbness, paresthesia, pre-existing deficit, right sided numbness, right sided weakness, seizure, speech problems, tingling, tremors, weakness, others Musculoskeletal: reports: joint pain, others (RIGH SHOULDER PAIN); denies: back pain, gout, joint swelling, muscle pain, muscle stiffness, neck pain Integumetry: denies: bruises, change in color, change in hair/nails, dryness, laceration, lesions, lumps, rash, wounds, others Allergic/Immunocompromised: denies: Difficulty Healing, Frequent Infections, Hives, Itching, others Hematologic/Lymphatic: denies: anemia, blood clots, easy bleeding, easy bruising, swollen glands, others Endocrine: denies: excessive hunger, excessive sweating, excessive thirst, excessive urination, flushing, intolerance to cold, intolerance to heat, unexplained weight gain, unexplained weight loss, others Psychiatric: denies: anxiety, bipolar disorder, depression, hopeless, panic disorder, schizophrenia, sleepless, suicidal, others All Other Systems: Reviewed and Negative Physical Exam General Appearance: No Apparent Distress, Normal HEENT: Normal ENT Inspection, PERRL/EOMI, Pharynx Normal, TMs Normal Neck: Full Range of Motion, Non-Tender, Normal, Normal Inspection Respiratory: Chest Non-Tender, Lungs Clear, No Accessory Muscle Use, No Respiratory Distress, Normal Breath Sounds Cardiovascular: No Edema, No JVD, No Murmur, No Gallop, Normal Peripheral Pulses, Regular Rate/Rhythm Breast Exam: Deferred Gastrointestinal: No Organomegaly, Non Tender, No Pulsatile Mass, Normal Bowel Sounds, Soft Genitalia: Deferred Pelvic: Deferred Rectal: Deferred Extremities: Decreased range of motion, No calf tenderness, Normal capillary refill, No pedal edema, Tender (AND DEFORMITY ON RIGHT SHOULDER, NO BONY TENDERNESS AND SWELLING. ROM DECREASED. ) Musculoskeletal : Apperance: Normal Neurologic: Alert, circuit breaker supervisor II-XII nml as Tested, No Motor Deficits, Normal Affect, Normal Mood, No Sensory Deficits Cerebellar Function: Normal Reflexes: Normal Skin: Dry, Normal Color, Warm Peripheral Pulses: 2+ carotid (R), 2+ carotid (L) Lymphatic: No Adenopathy Was a procedure done? Was a procedure done?: Yes Sedation Sedation?: No Reduction Indication: Dislocation (RIGHT SHOULDER DISLOCATION) Intra-articular anesthetic maral: No Post-reduction x-ray show: Reduction, Good Alignment Informed consent obtained: No Risks/benefits/alt described: Yes Notes PATIENT'S RIGHT SHOULDER WAS SUPINATED AND PULLED AND HER DISLOCATION WAS SUCCESSFULLY REDUCED. PATIENT TOLERATED WELL. POST-REDUCTION X RAY WAS DONE AND IT SHOWED CORRECT ANATOMICAL ALIGNMENT. Differential Diagnosis EXT Differential Diagnosis: Fracture, Sprain, Dislocation, Strain X-Ray, Labs, Meds, VS Vital Signs Date Time Temp Pulse Resp B/P (MAP) Pulse Ox O2 Delivery O2 Flow Rate FiO2 05/07/25 14:44 98.5 81 15 130/97 (108) 100 98.5 05/07/25 14:44 81 15 100 Room Air 05/07/25 14:18 97.9 103 16 126/99 (108) 99 97.9 Current Medications Medications (Trade) Dose Ordered Sig/Caleb Route Start Time Stop Time Status Last Admin Ketorolac Tromethamine (Toradol Injection) 60 mg ONCE ONCE IM 05/07/25 14:30 05/07/25 14:31 DC 05/07/25 14:45 CLINICAL INDICATION: POSSIBLE DISLOCATION TECHNIQUE: XY R SHOULDER 2+ VIEW XRAY Comparison: XY R SHOULDER 2+ VIEW XRAY on DOS: 12/23/24, XY R SHOULDER 2+ VIEW XRAY on DOS: 12/23/24, XY R SHOULDER 1V XRAY on DOS: 01/27/24, XY R SHOULDER 2+ VIEW XRAY on DOS: 01/27/24 FINDINGS/IMPRESSION: : Anterior shoulder dislocation. ATED BY: STEVE WATTS MD DICTATED DATE/TIME: 05/07/251439 SIGNED BY: STEVE WATTS MD SIGNED DATE/TIME: 05/07/251439 CC: X-Ray, Labs, Meds, VS Comment EXTERNAL MEDICAL RECORDS REVIEWED: [NONE] INDEPENDENT HISTORIANS: [NONE] SOCIAL DETERMINANTS OF HEALTH: [NONE] LABS ORDERED: NONE REVIEWED AND INTERPRETED RESULTS: NONE IMAGING ORDERED: XR SHOULDER RT XR SHOULDER RT (POST-REDUCTION): [INTERPRETED BY ME. NO ACUTE FRACTURE OR DISLOCATION. ANTERIOR DISLOCATION SUCCESSFULLY REDUCED. SHOULDER JOINT NOW IN CORRECT ANATOMICAL POSITION. PENDING RADIOLOGY REVIEW.] TREATMENTS ORDERED: TORADOL 60MG IM AND SHOULDER IMMOBILIZATION PROCEDURES PERFORMED: NONE CRITICAL CARE TIME: NONE I HAVE DISCUSSED THE PATIENT WITH THE ATTENDING PHYSICIAN DR. JACOBO AND HE AGREES WITH THE PATIENT'S PLAN OF CARE AND DISPOSITION. BASED ON HISTORY OF PRESENT ILLNESS, AND PHYSICAL EXAM, PATIENT WILL BE DISCHARGED HOME. DISCUSSED PLAN FOR DISCHARGE HOME WITH RX [IBUPROFEN 800MG]. MEDICATION WARNINGS GIVEN. SHARED DECISION MAKING:PATIENT INSTRUCTED TO FOLLOW UP WITH PRIMARY CARE PROVIDER IN 1-2 DAYS FOR RE-EVALUATION OF SYMPTOMS. PATIENT VERBALIZES UNDERSTANDING TO RETURN TO ED FOR NEW OR WORSENING SYMPTOMS OR IF FOLLOW UP WITH PCP CANNOT BE OBTAINED. PATIENT FEELS COMFORTABLE GOING HOME AT THIS TIME. ALL QUESTIONS ADDRESSED AT TIME OF DISCHARGE. Images Reviewed?: Images reviewed and evaluated by me Time of 1ST Reevaluation: 15:10 Reevaluation 1ST: Improved Patient Education/Counseling: Diagnosis, Treatment, Need For Follow Up Family Education/Counseling: Diagnosis, Treatment, Need For Follow Up Medical Screening: No EMC Exist At This Time Departure 1 Departure Time of Disposition: 15:10 Impression: Primary Impression: Closed anterior dislocation of right shoulder Qualified Codes: S43.014A - Anterior dislocation of right humerus, initial encounter Disposition: HOME / SELF CARE / HOMELESS Condition: Stable Additional Instructions: FOLLOW UP WITH PCP IN 1-2 DAYS FOR REFERRAL TO [facility]. TAKE MEDICATIONS PRESCRIBED. RETURN TO ED FOR ANY NEW OR WORSENING SYMPTOMS. e-Prescriptions Ibuprofen (Ibuprofen) 800 Mg Tab 1 TAB PO TID, #30 TAB Prov: SERJIO HOGUE 05/07/25 Discharged With: Self Critical Care Note Critical Care Time?: No Stability Stability form required: No I personally scribed for SERJIO HOGUE ([email or web address]) on 05/07/25 at 14:33. Electronically submitted by Patel Quiroz ([email or web address]). I personally scribed for SERJIO HOGUE ([email or web address]) on 05/07/25 at 14:45. Electronically submitted by Patel Quiroz ([email or web address]). I personally scribed for SERJIO HOGUE ([email or web address]) on 05/07/25 at 14:50. Electronically submitted by Patel Quiroz ([email or web address]). SERJIO HOGUE May 07, 2025 14:33
--- NOTE | 2025-05-07 14:43 | DVH ---
CLINICAL INDICATION: POSSIBLE DISLOCATION TECHNIQUE: XY R SHOULDER 2+ VIEW XRAY Comparison: XY R SHOULDER 2+ VIEW XRAY on DOS: 12/23/24, XY R SHOULDER 2+ VIEW XRAY on DOS: 12/23/24, X Y R SHOULDER 1V XRAY on DOS: 01/27/24, XY R SHOULDER 2+ VIEW XRAY on DOS: 01/27/24 FINDINGS/IMPRESSION: : Anterior shoulder dislocation.
[2025-05-07 14:44] VITALS: BP 130/97; PULSE 81; RESP 15; TEMP 98.5; O2SAT 100
[2025-05-07] MEDS: KETOROLAC TROMETH 60MG/2ML VIAL IM ONE (14:45)
[2025-05-07] MEDS ORDERED: IBUP-1456 PO (14:46)
--- NOTE | 2025-05-07 15:01 | DVH ---
CLINICAL INDICATION: POST REDUCTION TECHNIQUE: 3 radiographic views of the right shoulder were obtained. Comparison: XY R SHOULDER 2+ VIEW XRAY on DOS: 05/07/25, XY R SHOULDER 2+ VIEW XRAY on DOS: 12/23/24, X Y R SHOULDER 2+ VIEW XRAY on DOS: 12/23/24 FINDINGS/IMPRESSION: Bony alignment is normal. There is a large Hill-Sachs deformity of the greater tuberosity.
== END 2025-05-07 14:55 | disposition home or self-care (01) ==
LOC: ER 14:04
DX: S43.014A Anterior dislocation of right humerus, initial encounter (principal); F32.A Depression, unspecified; F10.10 Alcohol abuse, uncomplicated; Z79.1 Long term (current) use of non-steroidal anti-inflammatories (NSAID); Z79.899 Other long term (current) drug therapy; X58.XXXA Exposure to other specified factors, initial encounter; Y93.9 Activity, unspecified; Y92.89 Other specified places as the place of occurrence of the external cause; Y99.8 Other external cause status; Y90.9 Presence of alcohol in blood, level not specified
CPT/HCPCS: 23650; 73020; 73030; 96372; 99284; J1885

== ENCOUNTER 2025-05-20 17:11 | Emergency (ER) | payer OTHER, MEDICAID ==
[~2025-05-20] VITALS: Ht 167.6 cm; Wt 66.1 kg
[~2025-05-20 17:11] MED LIST changes: +IBUP-1456 PO
--- NOTE | 2025-05-20 17:36 | ED.PDOC ---
Musculoskeletal HPI Comments This is a 34 year old female presenting to the ED with chief complaint of right shoulder dislocation. Patient reports that she has history of frequent dislocations of her right shoulder, having a repair scheduled for next week to stop them. Patient relays that she accidentally dislocated her right shoulder again today, needing it put back in place. Patient denies any numbness, weakness, fall, or injury. Patient appears to have a right shoulder dislocation and is very uncomfortable at time of evaluation. Time Seen by MD: 17:34 Primary Care Provider: NONE Reviewed Notes: Nurses Notes, Medications, Allergies Allergies: Coded Allergies: NO KNOWN ALLERGIES (Unverified , 01/27/24) Home Meds Active Scripts Ibuprofen (Ibuprofen) 800 Mg Tab, 1 TAB PO TID, #30 TAB Prov:SERJIO HOGUE 05/07/25 Magnesium Oxide (MAGNESIUM OXIDE) 400 Mg Tab, 1 TAB PO BID for 30 Days, #60 TAB 5 Refills Prov:CHLOE FRY MD 10/25/24 Multiple Vitamin (Multivitamins) Tab, 1 TAB PO DAILY for 90 Days, #90 TAB 3 Refills Prov:CHLOE FRY MD 10/25/24 Chlordiazepoxide Hcl (Librium) 25 Mg Cp, 25 MG GT Q4HP PRN for 10 Days, #40 CAP Prov:CHLOE FRY MD 10/25/24 Hydrocodone-Acetaminophen (Hydrocodone Bitartrate/AC 5-325 mg) 1 Tab Tab, 1 TAB PO Q6HPRN PRN for 5 Days, #20 TAB Prov:DARRON MONGE MD 01/29/24 Information Source: Patient Mode of Arrival: Ambulatory Location: Right Extremity Location: Shoulder Timing: Hours Prehospital treatment: None Severity: Moderate Able to Move Extremity: No Pain: Moderate Mechanism: Spontaneous Circumstances: Spontaneous Onset of Symptoms: Spontaneous Symptoms: Pain DVT Risk Factors: NONE History of: Shoulder Dislocation Past Medical History PAST MEDICAL HISTORY: Depression, Seizures Surgical History: Denies all surgeries ORNAMENT STITCHER History: Denies all ORNAMENT STITCHER Hx Family History Family History: Reviewed,noncontributory to illness Social History Smoker: Non-Smoker Alcohol: Heavy Drugs: Denies Drug Use Lives In: Home Constitutional: denies: chills, diaphoresis, fatigue, fever, malaise, sweats, weakness, others EENTM: denies: blurred vision, double vision, ear bleeding, ear discharge, ear drainage, ear pain, ear ringing, eye pain, eye redness, hearing loss, mouth pain, mouth swelling, nasal discharge, nose bleeding, nose congestion, nose pain, photophobia, tearing, throat pain, throat swelling, voice changes, others Respiratory: denies: cough, hemoptysis, orthopnea, SOB at rest, shortness of breath, SOB with excertion, stridor, wheezing, others Cardiovascular: denies: chest pain, dizzy spells, diaphoresis, Dyspnea on exertion, edema, irregular heart beat, left arm pain, lightheadedness, palpitations, PND, syncope, others Gastrointestinal: denies: abdomen distended, abdominal pain, blood streaked bowels, constipated, diarrhea, dysphagia, difficulty swallowing, hematemesis, melena, nausea, poor appetite, poor fluid intake, rectal bleeding, rectal pain, vomiting, others Genitourinary: denies: abnormal vagina bleeding, burning, dyspareunia, dysuria, flank pain, frequency, hematuria, incontinence, pain, , vagina discharge, urgency, others Neurological: denies: dizziness, fainting, headache, left sided numbness, left sided weakness, numbness, paresthesia, pre-existing deficit, right sided numbness, right sided weakness, seizure, speech problems, tingling, tremors, weakness, others Musculoskeletal: reports: others (Rt shoulder dislocation); denies: back pain, gout, joint pain, joint swelling, muscle pain, muscle stiffness, neck pain Integumetry: denies: bruises, change in color, change in hair/nails, dryness, laceration, lesions, lumps, rash, wounds, others Allergic/Immunocompromised: denies: Difficulty Healing, Frequent Infections, Hives, Itching, others Hematologic/Lymphatic: denies: anemia, blood clots, easy bleeding, easy bruising, swollen glands, others Endocrine: denies: excessive hunger, excessive sweating, excessive thirst, excessive urination, flushing, intolerance to cold, intolerance to heat, unexplained weight gain, unexplained weight loss, others Psychiatric: denies: anxiety, bipolar disorder, depression, hopeless, panic disorder, schizophrenia, sleepless, suicidal, others All Other Systems: Reviewed and Negative Physical Exam General Appearance: Moderate Distress (Due to discomfort related to her right shoulder dislocation.), Normal HEENT: Normal ENT Inspection, Pharynx Normal, TMs Normal Neck: Full Range of Motion, Non-Tender, Normal, Normal Inspection Respiratory: Chest Non-Tender, Lungs Clear, No Accessory Muscle Use, No Respiratory Distress, Normal Breath Sounds Cardiovascular: No Edema, No JVD, No Murmur, No Gallop, Normal Peripheral Pulses, Regular Rate/Rhythm Breast Exam: Deferred Gastrointestinal: No Organomegaly, Non Tender, No Pulsatile Mass, Normal Bowel Sounds, Soft Genitalia: Deferred Pelvic: Deferred Rectal: Deferred Extremities: Other (Patient displays a right shoulder dislocation/anterior. No edema or ecchymosis.) Neurologic: Alert, No Motor Deficits, Normal Affect, Normal Mood, No Sensory Deficits Cerebellar Function: Normal Reflexes: Normal Skin: Dry, Normal Color, Warm Lymphatic: No Adenopathy Was a procedure done? Was a procedure done?: Yes Sedation Sedation?: No Reduction Indication: Dislocation Sedation: Consents obtained Intra-articular anesthetic maral: No Post-reduction x-ray show: Reduction, Good Alignment Informed consent obtained: Yes Risks/benefits/alt described: Yes Notes Reduction successful without conscious sedation. Traction and external rotation was utilize until shoulder relocated. Pending XR for confirmation. Differential Diagnosis EXT Differential Diagnosis: Dislocation X-Ray, Labs, Meds, VS Vital Signs Date Time Temp Pulse Resp B/P (MAP) Pulse Ox O2 Delivery O2 Flow Rate FiO2 05/20/ 17:24 99.0 116 16 143/107 (119) 98 99.0 151/107 (122) X-Ray, Labs, Meds, VS Comment All imaging studies were evaluated by me personally. Postreduction right shoulder series revealed a successful reduction. Patient will be sent home with a sling. Advised patient to maintain her follow up appointments with her orthopedist to utilize surgical intervention with her recurrent right shoulder dislocation issues. Time of 1ST Reevaluation: 18:55 Reevaluation 1ST: Improved Consultation: PCP, Surgery Patient Education/Counseling: Diagnosis, Treatment Family Education/Counseling: Diagnosis, Treatment, No Family Present Sepsis Recent Procedure: No On Antibiotic Therapy: No Respiratory Rate >20: No Heart Rate >90: No Temp<36 C (96.8 F) or >38.3 C: No SBP <90 or MAP <65 mmHG: No New Acute Mental Status Change: No Is the patient on CPAP, BIPAP,: No IV fluid given: No Departure 1 Departure Time of Disposition: 18:56 Impression: Primary Impression: Dislocation of right shoulder joint Disposition: HOME / SELF CARE / HOMELESS Condition: Stable Additional Instructions: Advised patient to maintain her surgical appointment for right shoulder evaluation and surgical intervention. Discharged With: Self, Friend Critical Care Note Critical Care Time?: No Stability Stability form required: No Heart Score Heart Score: Heart Score Response (Comments) Value History N/A 0 EKG N/A 0 Age N/A 0 Risk Factors N/A 0 Troponin N/A 0 Total 0 I personally scribed for AMELIA CHRISTIANSON PAC ([email or web address]) on 05/20/25 at 17:36. Electronically submitted by Oral Gonzalez ([email or web address]). AMELIA CHRISTIANSON PAC May 20, 2025 17:36
--- NOTE | 2025-05-20 18:08 | DVH ---
CLINICAL INDICATION: Post reduction evaluation TECHNIQUE: 3 radiographic views of the right shoulder were obtained. Comparison: XY R SHOULDER 1V XRAY on DOS: 05/07/25, XY R SHOULDER 2+ VIEW XRAY on DOS: 05/07/25, XY R S HOULDER 2+ VIEW XRAY on DOS: 12/23/24 FINDINGS/IMPRESSION: Bony alignment appears normal. Hill-Sachs deformity is noted to the proximal humerus. Acromioclavicular joint appears normal.
[2025-05-20 19:06] VITALS: BP 168/99; PULSE 90; RESP 17; TEMP 98.4; O2SAT 98
== END 2025-05-20 19:04 | disposition home or self-care (01) ==
LOC: ER 17:11
DX: S43.084A Other dislocation of right shoulder joint, initial encounter (principal); F32.A Depression, unspecified; Z79.899 Other long term (current) drug therapy; X58.XXXA Exposure to other specified factors, initial encounter; Y93.89 Activity, other specified; Y92.89 Other specified places as the place of occurrence of the external cause; Y99.9 Unspecified external cause status
CPT/HCPCS: 23650; 73020

== ENCOUNTER 2025-06-01 20:23 | Emergency (ER) | payer OTHER, MEDICAID ==
[~2025-06-01] VITALS: Ht 170.2 cm; Wt 68.0 kg
--- NOTE | 2025-06-01 20:55 | ED.PDOC ---
Musculoskeletal HPI Comments 34y F who presents to the ED for chief complaint of extremity pain. Pt states she is to have R shoulder surgery on 06/23 and states she has had R shoulder fracture 1 year ago and has since dislocated her R shoulder multiple times since. Pt states today, she [place] with [place] and while moving her R shoulder, she felt a pop and has since been having pain moving her R shoulder. Pt in the ED, rates her pain is 10/10, constant, with no associated exacerbating or relieving factors. Pt otherwise in noted distress in the ED. Chief Complaint: Upper Extremity Time Seen by MD: 20:53 Primary Care Provider: NONE Reviewed Notes: Nurses Notes, Medications, Allergies Allergies: Coded Allergies: NO KNOWN ALLERGIES (Unverified , 01/27/24) Home Meds Active Scripts Ibuprofen (Ibuprofen) 800 Mg Tab, 1 TAB PO TID, #30 TAB Prov:SERJIO HOGUE 05/07/25 Magnesium Oxide (MAGNESIUM OXIDE) 400 Mg Tab, 1 TAB PO BID for 30 Days, #60 TAB 5 Refills Prov:CHLOE FRY MD 10/25/24 Multiple Vitamin (Multivitamins) Tab, 1 TAB PO DAILY for 90 Days, #90 TAB 3 Refills Prov:CHLOE FRY MD 10/25/24 Chlordiazepoxide Hcl (Librium) 25 Mg Cp, 25 MG GT Q4HP PRN for 10 Days, #40 CAP Prov:CHLOE FRY MD 10/25/24 Hydrocodone-Acetaminophen (Hydrocodone Bitartrate/AC 5-325 mg) 1 Tab Tab, 1 TAB PO Q6HPRN PRN for 5 Days, #20 TAB Prov:DARRON MONGE MD 01/29/24 Information Source: Patient Mode of Arrival: Ambulatory Brought in by: self Location: Right Extremity Location: Shoulder Timing: Hours Prehospital treatment: None Severity: Moderate Able to Move Extremity: Yes Bear Weight: Limited Pain: Severe Mechanism: Spontaneous Circumstances: Spontaneous Onset of Symptoms: Spontaneous Symptoms: Pain History of: Shoulder Fracture, Shoulder Dislocation Associated signs and symptoms: Shoulder pain Past Medical History PAST MEDICAL HISTORY: Depression, Seizures Surgical History: Denies all surgeries 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 Hx Family History Family History: Reviewed,noncontributory to illness Social History Smoker: Non-Smoker Alcohol: Heavy Drugs: Denies Drug Use Lives In: Home Constitutional: denies: chills, diaphoresis, fatigue, fever, malaise, sweats, weakness, others EENTM: denies: blurred vision, double vision, ear bleeding, ear discharge, ear drainage, ear pain, ear ringing, eye pain, eye redness, hearing loss, mouth pain, mouth swelling, nasal discharge, nose bleeding, nose congestion, nose pain, photophobia, tearing, throat pain, throat swelling, voice changes, others Respiratory: denies: cough, hemoptysis, orthopnea, SOB at rest, shortness of breath, SOB with excertion, stridor, wheezing, others Cardiovascular: denies: chest pain, dizzy spells, diaphoresis, Dyspnea on exertion, edema, irregular heart beat, left arm pain, lightheadedness, palpi tations, PND, syncope, others Gastrointestinal: denies: abdomen distended, abdominal pain, blood streaked bowels, constipated, diarrhea, dysphagia, difficulty swallowing, hematemesis, melena, nausea, poor appetite, poor fluid intake, rectal bleeding, rectal pain, vomiting, others Genitourinary: denies: abnormal vagina bleeding, burning, dyspareunia, dysuria, flank pain, frequency, hematuria, incontinence, pain, , vagina discharge, urgency, others Neurological: denies: dizziness, fainting, headache, left sided numbness, left sided weakness, numbness, paresthesia, pre-existing deficit, right sided numbness, right sided weakness, seizure, speech problems, tingling, tremors, weakness, others Musculoskeletal: reports: joint pain; denies: back pain, gout, joint swelling, muscle pain, muscle stiffness, neck pain, others Integumetry: denies: bruises, change in color, change in hair/nails, dryness, laceration, lesions, lumps, rash, wounds, others Allergic/Immunocompromised: denies: Difficulty Healing, Frequent Infections, Hives, Itching, others Hematologic/Lymphatic: denies: anemia, blood clots, easy bleeding, easy bruising, swollen glands, others Endocrine: denies: excessive hunger, excessive sweating, excessive thirst, excessive urination, flushing, intolerance to cold, intolerance to heat, unexplained weight gain, unexplained weight loss, others Psychiatric: denies: anxiety, bipolar disorder, depression, hopeless, panic disorder, schizophrenia, sleepless, suicidal, others All Other Systems: Reviewed and Negative Physical Exam General Appearance: Moderate Distress HEENT: Normal ENT Inspection, Pharynx Normal, TMs Normal Neck: Full Range of Motion, Non-Tender, Normal, Normal Inspection Respiratory: Chest Non-Tender, Lungs Clear, No Accessory Muscle Use, No Respiratory Distress, Normal Breath Sounds Cardiovascular: No Edema, No JVD, No Murmur, No Gallop, Normal Peripheral Pulses, Regular Rate/Rhythm Breast Exam: Deferred Gastrointestinal: No Organomegaly, Non Tender, No Pulsatile Mass, Normal Bowel Sounds, Soft Genitalia: Deferred Pelvic: Deferred Rectal: Deferred Extremities: No calf tenderness, Normal capillary refill, No pedal edema Musculoskeletal : Location: Right Extremity Location: Shoulder Apperance: Deformity, Limited ROM, Tenderness: Moderate Neurologic: Alert, 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 Was a procedure done?: Yes Sedation Sedation?: No Reduction Indication: Dislocation Intra-articular anesthetic maral: No Post-reduction x-ray show: Reduction, Good Alignment Informed consent obtained: Yes Risks/benefits/alt described: Yes Differential Diagnosis EXT Differential Diagnosis: Fracture, Sprain, Dislocation X-Ray, Labs, Meds, VS Vital Signs Date Time Temp Pulse Resp B/P (MAP) Pulse Ox O2 Delivery O2 Flow Rate FiO2 8/5/25 20:30 98.0 105 20 129/92 95 98.0 The patient tolerated the procedure The patient was placed in a right shoulder immobilizer The patient is being discharged at this time X-ray of the right shoulder shows good alignment The patient will follow up with the primary care doctor and the orthopedic surgeon The patient is discharged Images Reviewed?: Images reviewed and evaluated by me Time of 1ST Reevaluation: 21:30 Reevaluation 1ST: Unchanged Patient Education/Counseling: Diagnosis, Treatment Family Education/Counseling: No Family Present Departure 1 Departure Time of Disposition: 21:00 Impression: Primary Impression: Closed anterior dislocation of right shoulder Qualified Codes: S43.014A - Anterior dislocation of right humerus, initial encounter Disposition: HOME / SELF CARE / HOMELESS Condition: Fair Discharged With: Self Critical Care Note Critical Care Time?: No Stability Stability form required: No Heart Score Heart Score: Heart Score Response (Comments) Value History N/A 0 EKG N/A 0 Age N/A 0 Risk Factors N/A 0 Troponin N/A 0 Total 0 I personally scribed for GEOVANY BEE MD ([email or web address]) on 06/01/25 at 20:55. Electr onically submitted by Maritza Morales ([email or web address]). GEOVANY BEE MD Jun 01, 2025 20:55
--- NOTE | 2025-06-01 21:23 | DVH ---
CLINICAL INDICATION: post reduction TECHNIQUE: 3 views, right shoulder x-ray Comparison: XY R SHOULDER 1V XRAY on DOS: 05/20/25, XY R SHOULDER 1V XRAY on DOS: 05/07/25, XY R SHOULD ER 2+ VIEW XRAY on DOS: 05/07/25, XY R SHOULDER 2+ VIEW XRAY on DOS: 12/23/24, XY R SHOULDER 2+ VIEW XR AY on DOS: 12/23/24 FINDINGS/IMPRESSION: Alignment is grossly anatomic. 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
[2025-06-01 22:28] VITALS: BP 129/92; PULSE 105; RESP 20; TEMP 98; O2SAT 95
== END 2025-06-01 22:31 | disposition home or self-care (01) ==
LOC: ER 20:23
DX: S43.014A Anterior dislocation of right humerus, initial encounter (principal); F32.A Depression, unspecified; F10.10 Alcohol abuse, uncomplicated; Z79.899 Other long term (current) drug therapy; Z79.1 Long term (current) use of non-steroidal anti-inflammatories (NSAID); X58.XXXA Exposure to other specified factors, initial encounter; Y93.89 Activity, other specified; Y92.89 Other specified places as the place of occurrence of the external cause; Y99.8 Other external cause status; Y90.9 Presence of alcohol in blood, level not specified
CPT/HCPCS: 23650; 73030

== ENCOUNTER 2025-07-06 10:13 | Outpatient (CLI) | payer OTHER ==
[2025-07-06 11:32] LABS: Hematocrit 45.9 % (36.0-46.0); Hemoglobin 15.9 g/dL (12.2-16.2); Mean Corpuscular Hemoglobin 30.9 pg (28.0-32.0); Mean Corpuscular Volume 89.4 fL (80.0-100.0); Nucleated Red Blood Cells % 0.2 %
[2025-07-06 11:35] LABS: Alanine Aminotransferase 11 U/L (7-40); Alkaline Phosphatase 73 U/L (46-116); Anion Gap 10 (5-15); BUN/Creatinine Ratio 7.4 (10.0-20.0); Calcium 9.4 mg/dL (8.7-10.4); Carbon Dioxide 26 mmol/L (20-31); Chloride 105 mmol/L (98-107); Glucose 84 mg/dL (74-106); Potassium 3.7 mmol/L (3.5-5.1); Sodium 141 mmol/L (136-145); Total Iron Binding Capacity 319.0 ug/dL (250-425); Total Protein 7.7 g/dL (5.7-8.2)
[2025-07-06 11:36] LABS: Bilirubin, Total 0.4 mg/dL (0.2-1.0)
[2025-07-06 11:37] LABS: Iron 37.0 ug/dL (50-170)
[2025-07-06 11:40] LABS: Albumin 4.8 g/dL (3.2-4.8); Blood Urea Nitrogen 5 mg/dL (9-23)
[2025-07-06 19:09] LABS: Triglycerides 57 mg/dL (< 150)
[2025-07-06 19:11] LABS: Cholesterol 140 mg/dL (< 200); HDL Cholesterol 56 mg/dL (40-59)
[2025-07-07 12:09] LABS: Hepatitis A Total Antibody Positive (Negative)
[2025-07-07 12:10] LABS: Hepatitis B Surface Antigen Negative (Negative); Hepatitis C Antibody Negative (Negative)
== END 2025-07-06 17:00 | disposition home or self-care (01) ==
LOC: LAB 10:13
PROVIDERS: ATTEND Licensed Practical Nurse
DX: E55.9 Vitamin D deficiency, unspecified (principal); Z13.29 Encounter for screening for other suspected endocrine disorder; Z13.1 Encounter for screening for diabetes mellitus; Z00.01 Encounter for general adult medical examination with abnormal findings
CPT/HCPCS: 36415; 80053; 80061; 82043; 82306; 82728; 83036; 83540; 83550; 84443; 85025; 86704; 86706; 86708; 86803; 87340